=== PATIENT | male | born 2000 ===

== ENCOUNTER 2018-05-05 19:29 | Emergency (ER) | payer BC ==
--- NOTE | 2018-05-05 19:57 | C.PDOC ---
History Of Present Illness 17 year old male presents to the emergency department with complaints of palpitations. Patient states that he smoked marijuana prior to arrival. He denies chest pain and shortness of breath. Patient is able to speak in complete sentences but states he feels as if his heart is racing. Time Seen by Provider: 05/05/18 19:55 Chief Complaint (Nursing): Palpitations History Per: Patient History/Exam Limitations: no limitations Onset/Duration Of Symptoms: Hrs Current Symptoms Are (Timing): Still Present Associated Symptoms: Other (palpitations). denies: Chest Pain, Dyspnea Quality Of Symptoms: Rapid Heart Rate Severity: None Recent travel outside of the [place]: No Additional History Per: Patient Past Medical History Reviewed: Historical Data, Nursing Documentation, Vital Signs Vital Signs: Last Vital Signs Temp 97.6 F 05/05/18 19:42 Pulse 106 H 05/05/18 19:42 Resp 16 05/05/18 19:42 BP 135/89 05/05/18 19:42 Pulse Ox 98 05/05/18 19:42 - Medical History PMH: No Chronic Diseases Surgical History: No Surg Hx Family History: States: No Known Family Hx - Social History Hx Alcohol Use: No Hx Substance Use: Yes (marijuana) - Immunization History Hx Tetanus Toxoid Vaccination: No Hx Influenza Vaccination: No Hx Pneumococcal Vaccination: No Review Of Systems Constitutional: Negative for: Fever, Chills Cardiovascular: Positive for: Palpitations. Negative for: Chest Pain Respiratory: Negative for: Shortness of Breath Gastrointestinal: Negative for: Abdominal Pain Genitourinary: Negative for: Dysuria Musculoskeletal: Negative for: Back Pain Skin: Negative for: Rash Neurological: Negative for: Weakness Psych: Positive for: Anxiety Physical Exam - Physical Exam Appears: Non-toxic, No Acute Distress Skin: Warm, Dry Head: Normacephalic Eye(s): bilateral: Normal Inspection, PERRL, EOMI Oral Mucosa: Moist Neck: Trachea Midline, Supple Chest: Symmetrical, No Tenderness Cardiovascular: Rhythm Regular Respiratory: No Rales, No Rhonchi, No Wheezing Gastrointestinal/Abdominal: Soft, No Tenderness Extremity: Normal ROM Extremity: Bilateral: Atraumatic Neurological/Psych: Oriented x3 Gait: Steady ED Course And Treatment - Laboratory Results Result Diagrams: 05/05/18 20:28 05/05/18 20:47 ECG: Interpreted By Me, Viewed By Me ECG Rhythm: Sinus Rhythm (98), Nonspecific Changes O2 Sat by Pulse Oximetry: 98 (RA) Pulse Ox Interpretation: Normal - Radiology CXR: Interpreted by Me, Viewed By Me Progress Note: Plan: Alcohol Serum. CMP. Drug Screen. Magnesium. Phosphorus. CBC. Urinalysis Reevaluation Time: 21:50 Reassessment Condition: Improved Disposition Counseled Patient/Family Regarding: Studies Performed, Diagnosis, Need For Followup - Disposition Referrals: [facility] [Outside] Disposition: HOME/ ROUTINE Disposition Time: 19:57 Condition: FAIR Instructions: Palpitations (DC) Forms: [employer] (Indonesian) - Clinical Impression Clinical Impression: Palpitations - Scribe Statement The provider has reviewed the documentation as recorded by the Scribe (Sheldon Rizzo) Provider Attestation: All medical record entries made by the Scribe were at my direction and personally dictated by me. I have reviewed the chart and agree that the record accurately reflects my personal performance of the history, physical exam, medical decision making, and the department course for this patient. I have also personally directed, reviewed, and agree with the discharge instructions and disposition.
[2018-05-05 20:31] LABS: BASO # 0.1 K/uL (0.0-0.2); BASO % 0.6 % (0.0-2.0); EOS % 0.2 % (0.0-4.0); HEMOGLOBIN 15.3 g/dL (12.0-18.0); LYMPH % 29.4 % (20.0-40.0); MEAN CELL VOLUME 88.9 fL (80.0-94.0); MEAN CORPUSCULAR HEMOGLOBIN 29.9 pg (27.0-31.0); MEAN CORPUSCULAR HGB CONC 33.6 g/dL (33.0-37.0); MEAN PLATELET VOLUME 8.7 fL (7.2-11.7); MONO # 0.9 K/uL (0.0-0.8); MONO % 8.5 % (0.0-10.0); NEUT # 6.3 K/uL (1.8-7.0); NEUT % 61.3 % (50.0-75.0); NRBC % 0.1 % (0.0-2.0); RBC 5.1 Mil/uL (4.40-5.90); RED CELL DISTRIBUTION WIDTH 13.7 % (11.5-14.5); WHITE BLOOD COUNT 10.3 K/uL (4.8-10.8)
[2018-05-05 20:35] LABS: SQUAMOUS EPITHIAL < 1 /hpf (0-5); URINE BACTERIA RARE (<OCC); URINE BILIRUBIN NEGATIVE (NEGATIVE); URINE BLOOD NEGATIVE (NEGATIVE); URINE CLARITY Clear (Clear); URINE COLOR Yellow (YELLOW); URINE GLUCOSE (UA) NORMAL (Normal); URINE LEUKOCYTE ESTERASE NEG Leu/uL (Negative); URINE PROTEIN NEGATIVE (NEGATIVE); URINE UROBILINOGEN NORMAL mg/dL (0.2-1.0)
[2018-05-05 20:48] LABS: BARBITURATES, UR NEGATIVE (NEGATIVE); BENZODIAZEPINES, UR NEGATIVE (NEGATIVE); OPIATES, UR NEGATIVE (NEGATIVE); PHENCYCLIDINE, UR NEGATIVE (NEGATIVE)
[2018-05-05 21:04] LABS: BLOOD UREA NITROGEN 16 mg/dL (9-20); CALCIUM 8.9 mg/dl (8.6-10.4); GFR NON-AFRICAN AMERICAN > 60
[2018-05-05 21:08] LABS: ALB/GLOB RATIO 1.5 (1.0-2.1); ALBUMIN 4.6 g/dL (3.5-5.0); ALT/SGPT 57 U/L (21-72); AST/SGOT 47 U/L (17-59)
[2018-05-05 22:06] VITALS: BP 115/73; PULSE 70; RESP 16; TEMP 98.4; O2SAT 97
== END 2018-05-05 22:06 | disposition home or self-care (01) ==
LOC: C.ER 19:29
DX: R00.2 Palpitations (principal)
CPT/HCPCS: 80053; 81001; 83735; 84100; 85025; 99285; G0480

== ENCOUNTER 2018-06-09 09:41 | Emergency (ER) | payer BC ==
[2018-06-09 09:51] VITALS: TEMP 97.7
[2018-06-09] MEDS ORDERED: Aspirin 325 mg EC Tablets PO STA (10:09)
[2018-06-09 10:25] LABS: BASO # 0.1 K/uL (0.0-0.2); BASO % 0.8 % (0.0-2.0); EOS % 0.2 % (0.0-4.0); HEMOGLOBIN 15.8 g/dL (12.0-18.0); LYMPH # 2.8 K/uL (1.0-4.3); LYMPH % 26.8 % (20.0-40.0); MEAN CELL VOLUME 89.3 fL (80.0-94.0); MEAN CORPUSCULAR HEMOGLOBIN 30.8 pg (27.0-31.0); MEAN CORPUSCULAR HGB CONC 34.5 g/dL (33.0-37.0); MEAN PLATELET VOLUME 8.7 fL (7.2-11.7); MONO # 0.7 K/uL (0.0-0.8); MONO % 6.7 % (0.0-10.0); NEUT # 6.8 K/uL (1.8-7.0); NEUT % 65.5 % (50.0-75.0); RBC 5.13 Mil/uL (4.40-5.90); RED CELL DISTRIBUTION WIDTH 13.9 % (11.5-14.5); WHITE BLOOD COUNT 10.4 K/uL (4.8-10.8)
--- NOTE | 2018-06-09 10:28 | C.PDOC ---
History Of Present Illness 17 year old male with pmhx of eczema and recent palpitations presents to ED complaining of strong midline and left sided chest pressure that woke him up from sleep at 9:00 today. Patient states the pain was a 8 on a 1-10 scale when h e woke up and is now a 6. Patient reports that his mother gave him a large onion to eat that helped with the pain. Patient also complaining of palpitations and shortness of breath. Patient reports he visited applied psychology chair Dr. Stephane Ramirez on 06/06/18 and he ordered a stress test and echocardiogram. Patient denies smoking, drinking, fever, chills, coughing, N/V/D, weakness, numbness. PMD: Dr. Harris Nickerson. Time Seen by Provider: 06/09/18 09:53 Chief Complaint (Nursing): Palpitations History Per: Patient History/Exam Limitations: no limitations Onset/Duration Of Symptoms: Days Current Symptoms Are (Timing): Still Present Pain Scale Rating Of: 6 Past Medical History Reviewed: Historical Data, Nursing Documentation, Vital Signs Vital Signs: Last Vital Signs Temp 97.7 F 06/09/18 09:49 Pulse 115 H 06/09/18 09:49 Resp 19 06/09/18 09:49 BP 148/73 06/09/18 10:06 Pulse Ox 98 06/09/18 09:49 - Medical History PMH: Asthma (childhood) Surgical History: No Surg Hx Family History: States: No Known Family Hx - Social History Hx Alcohol Use: No Hx Substance Use: Yes (marijuana) - Immunization History Hx Tetanus Toxoid Vaccination: No Hx Influenza Vaccination: No Hx Pneumococcal Vaccination: No Review Of Systems Except As Marked, All Systems Reviewed And Found Negative. Constitutional: Negative for: Fever, Chills Cardiovascular: Positive for: Chest Pain (Midline and left sided chest pressure), Palpitations Respiratory: Positive for: Shortness of Breath. Negative for: Cough Gastrointestinal: Negative for: Nausea, Vomiting, Diarrhea Neurological: Negative for: Weakness, Numbness Physical Exam - Physical Exam Appears: Non-toxic, No Acute Distress, Other (Obese) Skin: Warm, Dry, Other (Redness to left arm from eczema.) Head: Atraumatic, Normacephalic Eye(s): bilateral: PERRL, EOMI Oral Mucosa: Moist Neck: Supple Chest: Symmetrical, No Deformity Cardiovascular: Rhythm Regular, Murmur Respiratory: Normal Breath Sounds, No Rales, No Rhonchi, No Wheezing Gastrointestinal/Abdominal: Soft, No Tenderness Neurological/Psych: Oriented x3, Normal Speech, Normal Cognition Gait: Steady ED Course And Treatment - Laboratory Results Result Diagrams: 06/09/18 10:18 06/09/18 10:18 Interpretation Of ECG: Normal EKG, Sinus tachycardic at 105 BPM, incomplete righ t bundle branch block. O2 Sat by Pulse Oximetry: 98 (RA) Pulse Ox Interpretation: Normal - Other Rad Chest x-ray X-Ray: Interpreted by Me, Viewed By Me Interpretation: FINDINGS: LUNGS: No active pulmonary disease. PLEURA: No significant pleural effusion identified. No pneumothorax apparent. CARDIOVASCULAR: No aortic atherosclerotic calcification present. Normal cardiac size. No pulmonary vascular congestion. OSSEOUS STRUCTURES: No significant abnormalities. VISUALIZED UPPER ABDOMEN: Normal. OTHER FINDINGS: None. IMPRESSION: No acute cardiopulmonary disease appreciated. Medical Decision Making Medical Decision Making: Initial impression: chest pain unknown. Plan: * Chest x-ray and labs to rule out pulmonary embolism. * Case reviewed with his applied psychology chair Dr. Ramirez--states EKG is unchanged. Recommends d/c home and patient will get stress test on June 16. I will d/c home on a baby aspirin. Disposition Counseled Patient/Family Regarding: Studies Performed, Diagnosis, Need For Followup, Rx Given - Disposition Referrals: Vick Ramirez MD [Staff Provider] - Disposition: HOME/ ROUTINE Disposition Time: 11:29 Condition: IMPROVED Additional Instructions: Mr. Blum, thank you for letting us take care of you today. Return to the ER if your symptoms worsen, or if any problems. Take the medication listed below as prescribed. Follow up with Dr. Vick Ramirez. And please go to your stress test appoint ment on June 16. Prescriptions: Aspirin [Adult Low Dose Aspirin EC] 1 tab PO DAILY #30 tablet. Ranitidine HCl [Zantac] 1 tab PO BID #60 tablet Instructions: Chest Pain Forms: [employer] (Malawian) Print Language: GREENLANDIC - Clinical Impression Clinical Impression: Chest pain at rest - Scribe Statement The provider has reviewed the documentation as recorded by the Maryanne Guevara Nabil Provider Attestation: All medical record entries made by the Scribe were at my direction and p ersonally dictated by me. I have reviewed the chart and agree that the record accurately reflects my personal performance of the history, physical exam, medical decision making, and the department course for this patient. I have also personally directed, reviewed, and agree with the discharge instructions and disposition.
[2018-06-09 10:35] LABS: ALB/GLOB RATIO 1.7 (1.0-2.1); ALT/SGPT 47 U/L (21-72); AST/SGOT 20 U/L (17-59); BLOOD UREA NITROGEN 16 mg/dL (9-20); CALCIUM 9.4 mg/dl (8.6-10.4); GFR NON-AFRICAN AMERICAN > 60
[2018-06-09 10:37] LABS: INR 1.1; PARTIAL THROMBOPLASTIN TIME 43 SECONDS (21-34); PROTHROMBIN TIME 11.8 SECONDS (9.7-12.2)
[2018-06-09 10:39] LABS: D DIMER < 200 ng/mlDDU (0-243)
[2018-06-09 10:46] LABS: B-TYPE NATRIURETIC PEPTIDE 27.7 pg/mL (0-450)
[2018-06-09 11:13] VITALS: BP 119/68; PULSE 97; RESP 16
[2018-06-09 11:32] VITALS: O2SAT 98
[2018-06-09 11:35] LABS: BARBITURATES, UR NEGATIVE (NEGATIVE); BENZODIAZEPINES, UR NEGATIVE (NEGATIVE); OPIATES, UR NEGATIVE (NEGATIVE); PHENCYCLIDINE, UR NEGATIVE (NEGATIVE)
--- NOTE | 2018-06-09 12:13 | RAD ---
Date of service: 06/09/2018 HISTORY: chest pain COMPARISON: No prior. TECHNIQUE: Chest PA and lateral FINDINGS: LUNGS: No active pulmonary disease. PLEURA: No significant pleural effusion identified. No pneumothorax apparent. CARDIOVASCULAR: No aortic atherosclerotic calcification present. Normal cardiac size. No pulmonary vascular congestion. OSSEOUS STRUCTURES: No significant abnormalities. VISUALIZED UPPER ABDOMEN: Normal. OTHER FINDINGS: None. IMPRESSION: No acute cardiopulmonary disease appreciated.
--- NOTE | 2018-06-12 15:23 | CARD ---
APPROVED REPORT Date of service: 06/09/2018 EKG Measurement Heart [id number] <Conclusion> Sinus tachycardia Incomplete right bundle branch block Nonspecific T wave abnormality Abnormal ECG
--- NOTE | 2018-06-12 15:23 | CARD ---
APPROVED REPORT Date of service: 06/09/2018 EKG Measurement Heart [id number] <Conclusion> Normal sinus rhythm Normal ECG
== END 2018-06-09 11:41 | disposition home or self-care (01) ==
LOC: C.ER 09:41
DX: R07.9 Chest pain, unspecified (principal); J45.909 Unspecified asthma, uncomplicated
CPT/HCPCS: 71046; 80053; 83880; 84484; 85025; 85378; 85610; 85730; 93005; 96374; 99285; G0480

== ENCOUNTER 2018-07-22 04:03 | Emergency (ER) | payer BC ==
[2018-07-22 04:31] VITALS: TEMP 98
--- NOTE | 2018-07-22 04:46 | C.PDOC ---
History Of Present Illness 17 year old male presents to the ED for evaluation of left-sided chest pressure associated with shortness of breath which began prior to arrival. Patient states he went to bed at around 0100 and was woken up by his symptoms at around 0300. He states symptoms are constant, with no alleviating or relieving factors. Patient has been evaluated in the ED for similar symptoms in the past. He was referred to a senior technical editor, whom he was saw month. Patient underwent a stress test and echocardiogram which were both negative. Patient also thinks he may have some gas. Otherwise, he denies dizziness, nausea, vomiting. Time Seen by Provider: 07/22/18 04:36 Chief Complaint (Nursing): Chest Pain History Per: Patient History/Exam Limitations: no limitations Onset/Duration Of Symptoms: Hrs Current Symptoms Are (Timing): Still Present Quality: Pressure Additional History Per: Patient Past Medical History Reviewed: Historical Data, Nursing Documentation, Vital Signs Vital Signs: Last Vital Signs Temp 98.0 F 07/22/18 04:17 Pulse 89 07/22/18 04:17 Resp 20 07/22/18 04:17 BP 146/77 07/22/18 04:17 Pulse Ox 99 07/22/18 04:17 - Medical History PMH: Asthma (childhood) Surgical History: No Surg Hx Family History: States: Unknown Family Hx - Social History Hx Alcohol Use: No Hx Substance Use: Yes (marijuana) - Immunization History Hx Tetanus Toxoid Vaccination: No Hx Influenza Vaccination: No Hx Pneumococcal Vaccination: No Review Of Systems Cardiovascular: Positive for: Other (left-sided chest pressure ) Respiratory: Positive for: Shortness of Breath Gastrointestinal: Negative for: Nausea, Vomiting Neurological: Negative for: Dizziness Physical Exam - Physical Exam Appears: Non-toxic, No Acute Distress Skin: Normal Color, Warm, Dry Head: Atraumatic, Normacephalic Eye(s): bilateral: Normal Inspection Oral Mucosa: Moist Neck: Normal ROM, Supple Chest: Symmetrical, No Deformity, No Tenderness Cardiovascular: Rhythm Regular, No Murmur Respiratory: Normal Breath Sounds, No Rales, No Rhonchi, No Wheezing Gastrointestinal/Abdominal: Soft, No Tenderness, No Guarding, No Rebound Extremity: Normal ROM Neurological/Psych: Oriented x3, Normal Speech, Normal Cognition ED Course And Treatment ECG: Interpreted By Me, Viewed By Me ECG Rhythm: Sinus Tachycardia Interpretation Of ECG: Sinus Tachycardia at rate 115bpm. Normal intervals, normal axis. No ST elevation. Rate From EC O2 Sat by Pulse Oximetry: 99 (on RA ) Pulse Ox Interpretation: Normal Medical Decision Making Medical Decision Making: Impression: 17 year old male with chest pressure Progress: * Toradol IM * EKG * reassess and disposition Progress: Toradol IM given. EKG ordered and reviewed. EKG: Sinus Tachycardia at rate 115bpm. Normal intervals, normal axis. No ST elevation. At time of exam HR is improved, at 93. Patient in no distress. He recently underwent cardiac workup including stress test and echo, which were negative. Patient advised to follow up with PMD and senior technical editor as needed. Disposition - Disposition Disposition: HOME/ ROUTINE Disposition Time: 05:30 Condition: GOOD Additional Instructions: KAYLEE STEPHENS, thank you for letting us take care of you today. Your provider was Patricia Gamez MD and you were treated for CHEST PAIN. The emergency medical care you received today was directed at your acute symptoms. If you were prescribed any medication, please fill it and take as directed. It may take several days for your symptoms to resolve. Return to the Emergency Department if your symptoms worsen, do not improve, or if you have any other problems. Please contact your doctor or call one of the physicians/clinics you have been referred to that are listed on the Patient Visit Information form that is included in your discharge packet. Bring any paperwork you were given at discharge with you along with any medications you are taking to your follow up visit. Our treatment cannot replace ongoing medical care by a primary care provider outside of the emergency department. Thank you for allowing the [facility] team to be part of your care today. If you had an X-Ray or CT scan: A Radiologist will review the ED reading if any change in treatment is needed we will contact you. If you had a blood, urine, or wound culture: It will take several days for the results, if any change in treatment is needed we will contact you. If you had an STI test: It will take 48 hours for the results. Please call after 1 week if you have not heard back. Instructions: Chest Pain (DC) Forms: [employer] (Malawian) - Clinical Impression Clinical Impression: Chest pain - Scribe Statement The provider has reviewed the documentation as recorded by the Scribe (Debora Lerma) Provider Attestation: All medical record entries made by the Scribe were at my direction and personally dictated by me. I have reviewed the chart and agree that the record accurately reflects my personal performance of the history, physical exam, medical decision making, and the department course for this patient. I have also personally directed, reviewed, and agree with the discharge instructions and disposition.
[2018-07-22 05:56] VITALS: BP 115/62; PULSE 78; RESP 17
[2018-07-22 06:01] VITALS: O2SAT 99
--- NOTE | 2018-07-23 16:56 | CARD ---
APPROVED REPORT Date of service: 07/22/2018 EKG Measurement Heart [id number] <Conclusion> Sinus tachycardia Otherwise normal ECG
== END 2018-07-22 05:15 | disposition home or self-care (01) ==
LOC: C.ER 04:03
DX: R07.9 Chest pain, unspecified (principal)
CPT/HCPCS: 93005; 96372; 99281; J1885